=== PATIENT | female | born 1945 | race Caucasian/White ===

== ENCOUNTER 2020-12-11 14:48 | Emergency (ER) | payer MEDICARE, SELFPAY ==
[2020-12-11 15:10] VITALS: BP 115/78; PULSE 102; RESP 20; TEMP 37.2; O2SAT 98
--- NOTE | 2020-12-11 16:00 | ED.LOWEXIN ---
HPI - Extremity Injury (Lower) General Chief Complaint: Extremity Injury, Lower Stated Complaint: Right Leg Pain Time Seen by Provider: 12/11/20 15:52 Source: patient and RN notes reviewed Mode of arrival: ambulatory Limitations: no limitations History of Present Illness HPI Narrative: Patient presents today complaining of a wound to her right lower leg. 9 days ago she fell down a grassy embankment, scraping her leg. She has been applying antibiotic ointment. Currently rates her leg pain 10/10 while she is walking, and it is slightly less while sitting quietly. States she believed the wound was healing, but then became red, swollen, and painful. MD complaint: leg injury Related Data Home Medications Medication Instructions Recorded Confirmed lisinopril-hydrochlorothiazide 1 tablet PO DAILY 12/11/20 12/11/20 lorazepam 0.5 mg PO BID PRN 12/11/20 12/11/20 pantoprazole 40 mg PO DAILY 12/11/20 12/11/20 paroxetine HCl 20 mg PO DAILY 12/11/20 12/11/20 Allergies Allergy/AdvReac Type Severity Reaction Status Date / Time No Known Allergies Allergy Verified 12/11/20 15:23 Review of Systems Review of Systems: CONSTITUTIONAL: Denies body aches, fever, chills, or sweats. EYES: Denies visual changes, redness, or discharge. ENT: Denies rhinorrhea, congestion, sore throat, or otalgia. CARDIOVASCULAR: Denies chest pain, palpitations, or edema. RESPIRATORY: Denies cough or dyspnea. GASTROINTESTINAL: Denies abdominal pain, nausea, vomiting, or diarrhea. GENITOURINARY: Denies dysuria or hematuria. SKIN: Denies rash, itching. + Right lower leg wound MUSCULOSKELETAL: Denies back pain, joint pain, or myalgia. NEUROLOGIC: Denies headache, numbness, tingling, or weakness. PSYCH: Denies depression or anxiety. [facility] Past Medical History Medical History (Updated 12/11/20 @ 16:10 by Nelly White, [employer], ) GERD (gastroesophageal reflux disease) Hypertension Comments At time of signature, I have reviewed and agree with nursing past medical, surgical, social and family history unless otherwise noted. Please see nursing chart for further information. There is no relevant family history pertinent to the presenting complaint Exam Narrative: GENERAL: Well-appearing, well-nourished, and in no acute distress. HEAD: Normocephalic, atraumatic. EYES: EOMI. No redness or drainage. Conjunctivae normal. ENT: Mucous membranes pink and moist. NECK: Normal AROM. CHEST: No respiratory distress. EXTREMITIES: 7 x 7 cm area of erythema with 2 large scabbed over skin tears in the center. Tender to palpation. SKIN: Warm, dry, no rash. Capillary refill normal. Normal skin turgor. NEURO: No focal deficits. Alert and oriented x3. Gait steady. PSYCH: Normal affect. No signs of depression or anxiety. Course Vital Signs Vital signs: Vital Signs Temperature 98.9 F 12/11/20 15:10 Pulse Rate 102 H 12/11/20 15:10 Respiratory Rate 20 12/11/20 15:10 Blood Pressure 115/78 12/11/20 15:10 Pulse Oximetry 98 12/11/20 15:10 Temperature 98.9 F 12/11/20 15:10 Pulse Rate 102 H 12/11/20 15:10 Respiratory Rate 20 12/11/20 15:10 Blood Pressure 115/78 12/11/20 15:10 Pulse Oximetry 98 12/11/20 15:10 Reviewed MDM - Extremity Injury (Lower) Differential Diagnosis Differential diagnosis: Likely other (Skin tear, cellulitis, abscess, skin avulsion, abrasion) Critical Care Time Critical Care Time Critical Care Time: No Discharge Plan Discharge Clinical Impression: Cellulitis of right lower extremity Patient Disposition: Home, Self-Care Condition: Stable Instructions: Antibiotic Form, Cellulitis (ED) Additional Instructions: Please take the Keflex as prescribed until gone. Take Tylenol for pain if needed. Follow-up with your doctor in 2 to 3 days if symptoms are not improving. Patient Language: Chinese Prescriptions: New cephalexin 500 mg capsule 500 mg PO Q6H 10 Days Qty: 40 RF: 0 No Action
== END 2020-12-11 16:13 | disposition home or self-care (01) ==
PROVIDERS: Emergency Provider Nurse Practitioner; PCP Internal Medicine
DX: L03.115 Cellulitis of right lower limb (principal); K21.9 Gastro-esophageal reflux disease without esophagitis; I10 Essential (primary) hypertension; E78.00 Pure hypercholesterolemia, unspecified; F41.9 Anxiety disorder, unspecified
CPT/HCPCS: 99213; G0463